=== PATIENT | male | born 1955 | race African-American/Black ===

== ENCOUNTER 2021-10-03 11:25 | Emergency (ER) | payer OTHER ==
[~2021-10-03] VITALS: Ht 177.8 cm; Wt 76.0 kg
[2021-10-03 11:52] VITALS: BP 146/87
[2021-10-03] MEDS ORDERED: LIDO:MAALOX 1:1 20 ML SINGLE DOSE. PO ONE (12:00)
--- NOTE | 2021-10-03 12:27 | PHYS DOC ---
Past History Additional Past Medical Histor: bph, chronic back pain (RALF WATSON APRN) Past Surgical History: Other Additional Past Surgical Histo: hernia repair at 18yr old (RALF WATSON APRN) General Adult EDM: Chief Complaint: ABDOMINAL PAIN HPI: HPI: Patient is a 65-year-old male presents with burning epigastric pain and lower abdominal pain. Patient states he was just placed on new medications from his PCP for GERD treatment. Patient also reports nausea and diarrhea. Denies anything making it better or worse. Denies fever or recent illness. History of chronic back pain, prostate issue. Denies alcohol or tobacco use. (RALF WATSON APRN) Review of Systems: Review of Systems: ROS At least 10 ROS systems have been reviewed and are negative except as documented in the HPI. General: Negative except as outlined in HPI above. Skin: Negative except as outlined in HPI above. HEENT: Negative except as outlined in HPI above. Neck: Negative except as outlined in HPI above. Respiratory: Negative except as outlined in HPI above.. Cardiovascular: Negative except as outlined in HPI above. Abdomen: Negative except as outlined in HPI above. : Negative except as outlined in HPI above. Back/MSK: Negative except as outlined in HPI above. Neuro: Negative except as outlined in HPI above. Psych: Negative except as outlined in HPI above. (RALF WATSON APRN) Current Medications: Current Meds: Current Medications Medications (Trade) Dose Ordered Sig/Esme Start Time Stop Time Status Last Admin Dose Admin Multi-Ingredient Mouthwash/Gargle (Gi Cocktail) 20 ml 1X ONCE 10/03/21 12:00 10/03/21 12:01 DC (RALF WATSON APRN) Allergies: Allergies: Allergies Coded Allergies Type Severity Reaction Last Updated Verified No Known Drug Allergies 10/03/21 No (RALF WATSON APRN) Physical Exam: PE: Constitutional: Well developed, well nourished, no acute distress, non-toxic appearance. [] HENT: Normocephalic, atraumatic, bilateral external ears normal, oropharynx moist, no oral exudates, nose normal. [] Eyes: PERRLA, EOMI, conjunctiva normal, no discharge. [] Neck: Normal range of motion, no tenderness, supple, no stridor. [] Cardiovascular:Heart rate regular rhythm, no murmur [] Lungs & Thorax: Bilateral breath sounds clear to auscultation [] Abdomen: Bowel sounds normal, soft, lower abdominal tenderness Skin: Warm, dry, no erythema, no rash. [] Back: No tenderness, no CVA tenderness. [] Extremities: No tenderness, no cyanosis, no clubbing, ROM intact, no edema. [] Neurologic: Alert and oriented X 3, normal motor function, normal sensory function, no focal deficits noted. [] Psychologic: Affect normal, judgement normal, mood normal. [] (RALF WATSON APRN) Current Patient Data: Vital Signs: Vital Signs Date Time Temp Pulse Resp B/P (MAP) Pulse Ox O2 Delivery O2 Flow Rate FiO2 10/03/21 11:52 97.7 50 16 146/87 (106) 99 (RALF WATSON APRN) EKG: EKG: Sinus rhythm. Heart rate 61 bpm. No STEMI. Read by Dr. Cano at 1207. [] (RALF WATSON APRN) Radiology/Procedures: Radiology/Procedures: [] XR CHEST 1V History: Reason: abd pain / Spl. Instructions: / History: Comparison: None. Findings: No consolidation or pleural effusion. Normal heart size. No pneumothorax. Impression: 1. No acute cardiopulmonary process. Electronically signed by: Tony Rivas DO (10/03/2021 12:40 PM) [facility] [place] INDICATION: Reason: abd pain / Spl. Instructions: / History: COMPARISON: December 2019 TECHNIQUE: Axial CT images were obtained through the abdomen and pelvis without intravenous contrast. One or more of the following individualized dose reduction techniques were utilized for this examination: 1. Automated exposure control; 2. Adjustment of the mA and/or kV according to patient size; 3. Use of iterative reconstruction technique. FINDINGS: Linear opacity at the lung bases could be from scarring or atelectasis. Vascular: Moderate calcific atherosclerosis. Hepatobiliary: No intrahepatic biliary duct dilation. Pancreas: Limited assessment secondary to lack of contrast. Spleen: Spleen unremarkable. Renal/Bladder: Low-density thickening of adrenal glands. For example on the left adrenal measures up to about 12 mm in thickness. Could be from causes such as hyperplasia or adenoma. Urinary bladder is partially distended. No left-sided hydronephrosis. No right-sided hydronephrosis. No definite radiopaque obstructive ureter stone. There are some adjacent calcifications likely within the vessels. Gastrointestinal: Colonic diverticulosis. Intussusception within a loop of small bowel the left-sided the abdomen. Appendix is partially seen and appears similar to prior. Portion obscured by adjacent unopacified bowel loops. Degenerative changes of the spine. Multilevel central canal and neural foraminal stenosis. Minimal wedging of the T12, T11 and T10 vertebral bodies. IMPRESSION: * No hydronephrosis. * Small bowel intussusception at the left side of the abdomen with some mild prominence of the small bowel wall in this area which could be from some inflammation to the area. No evidence of obstruction. This is commonly a transient finding and adults but would correlate with symptoms in the region. Electronically signed by: Tamir Mtz MD (10/03/2021 1:30 PM) [id number] (RALF WATSON APRN) Heart Score: C/O Chest Pain: No Risk Factors: Risk Factors: DM, Current or recent (<one month) smoker, HTN, HLP, family h istory of CAD, obesity. Risk Scores: Score 0 - 3: 2.5% MACE over next 6 weeks - Discharge Home Score 4 - 6: 20.3% MACE over next 6 weeks - Admit for Clinical Observation Score 7 - 10: 72.7% MACE over next 6 weeks - Early Invasive Strategies (RALF WATSON APRN) Course & Med Decision Making: Course & Med Decision Making Pertinent Labs and Imaging studies reviewed. (See chart for details) [] 65-year-old male presents with burning epigastric pain and lower abdominal pain. GI cocktail ordered to treat pain. Patient reports pain has improved after medication. All labs unremarkable. Lipase, 71. CT of the abdomen shows small bowel intussusception.Discussed results with patient. Advised patient he would most likely need to be transferred to [facility] for surgical consult. Patient is reporting pain. Patient given pain medication while in the ER. Patient requesting food. Advised patient he needed to stay n.p.o. Spoke with Dr. Art who wants patient transferred to [facility] for surgical consult. Consult with Dr. Steve as well who will be accepting patient at [facility]. Patient is hemodynamically stable upon transfer. (RALF WATSON APRN) Course & Med Decision Making I was the Attending physician on the above date of service of this patient. This patient was evaluated, examined, treated, and dispositioned from the emergency department by the mid-level practitioner. Although I was working at the time , no assistance was requested. Electronically signed, Mariana Cano DO (MARIANA CANO DO) Brooks Disclaimer: Brooks Disclaimer: This electronic medical record was generated, in whole or in part, using a voice recognition dictation system. (RALF WATSON APRN) Departure Departure: Impression: Primary Impression: Abdominal pain Qualified Codes: R10.84 - Generalized abdominal pain Additional Impression: Nausea Disposition: HOME / SELF CARE / HOMELESS Condition: STABLE Referrals: JENAE MICHEL (PCP) Patient Instructions: Abdominal Pain Additional Instructions: You were seen in the emergency room for abdominal pain. RALF WATSON APRN Oct 03, 2021 12:27 MARIANA CANO DO Oct 07, 2021 00:30
--- NOTE | 2021-10-03 12:43 | RAD ---
XR CHEST 1V History: Reason: abd pain / Spl. Instructions: / History: Comparison: None. Findings: No consolidation or pleural effusion. Normal heart size. No pneumothorax. Impression: 1. No acute cardiopulmonary process. Electronically signed by: Tony Rivas DO (10/03/2021 12:40 PM) [facility]
[2021-10-03 12:55] LABS: BASO # 0.1 x10^3/uL (0.0-0.2); BASO % 3 % (0-3); EOS # 0.1 x10^3/uL (0.0-0.7); EOS % 2 % (0-3); HEMATOCRIT 47.7 % (39.0-53.0); HEMOGLOBIN 15.4 g/dL (13.0-17.5); LYMPH # 1.2 x10^3/uL (1.0-4.8); LYMPH % 26 % (24-48); MEAN CORPUSCULAR HEMOGLOBIN 27 pg (25-35); MEAN CORPUSCULAR HGB CONC 32 g/dL (31-37); MEAN CORPUSCULAR VOLUME 84 fL (79-100); MONO # 0.6 x10^3/uL (0.0-1.1); MONO % 13 % (0-9); NEUT # 2.5 x10^3uL (1.8-7.7); NEUT % 56 % (31-73); PLATELET COUNT 283 x10^3/uL (140-400); RED BLOOD COUNT 5.71 x10^6/uL (4.30-5.70); RED CELL DISTRIBUTION WIDTH 16.7 % (11.5-14.5); WHITE BLOOD COUNT 4.4 x10^3/uL (4.0-11.0)
--- NOTE | 2021-10-03 12:57 | EKG ---
[address] [address] Test Date: 2021-10-03 Test Time: 11:58:03 Pat Name: ROBERT MALDONADO Department: Room: Gender: M Pediatric Medical Assistant: DIO : 1955 Requested By: RALF WATSON Order Number: [id number] Reading MD: Aguilar Calix Measurements Intervals [place] Rate: 61 P: 90 DE: 140 QRS: 96 QRSD: 84 T: 66 QT: 416 QTc: 424 Interpretive Statements SINUS RHYTHM ATRIAL PREMATURE COMPLEX(ES), TRIGEMINY RIGHTWARD AXIS ABNORMAL ECG RI6.02 No previous ECG available for comparison Electronically Signed On 10-05-2021 9:30:41 BAILER [employer]PERATORS SUPERVISOR by Aguilar Calix
[2021-10-03 13:05] LABS: CALCIUM 9.9 mg/dL (8.5-10.1); POTASSIUM 5.1 mmol/L (3.5-5.1)
[2021-10-03 13:11] LABS: ALBUMIN/GLOBULIN RATIO 1.1 (1.0-1.7); TOTAL BILIRUBIN 1.1 mg/dL (0.2-1.0); TOTAL PROTEIN 7.6 g/dL (6.4-8.2)
--- NOTE | 2021-10-03 13:33 | RAD ---
INDICATION: Reason: abd pain / Spl. Instructions: / History: COMPARISON: December 2019 TECHNIQUE: Axial CT images were obtained through the abdomen and pelvis without intravenous contrast. One or more of the following individualized dose reduction techniques were utilized for this examinat ion: 1. Automated exposure control; 2. Adjustment of the mA and/or kV according to patient size; 3 . Use of iterative reconstruction technique. FINDINGS: Linear opacity at the lung bases could be from scarring or atelectasis. Vascular: Moderate calcific atherosclerosis. Hepatobiliary: No intrahepatic biliary duct dilation. Pancreas: Limited assessment secondary to lack of contrast. Spleen: Spleen unremarkable. Renal/Bladder: Low-density thickening of adrenal glands. For example on the left adrenal measures up to about 12 mm in thickness. Could be from causes such as hyperplasia or adenoma. Urinary bladder is partially distended. No left-sided hydronephrosis. No right-sided hydronephrosis. No definite radiopa que obstructive ureter stone. There are some adjacent calcifications likely within the vessels. Gastrointestinal: Colonic diverticulosis. Intussusception within a loop of small bowel the left-sided the abdomen. Appendix is partially seen and appears similar to prior. Portion obscured by adjacent u nopacified bowel loops. Degenerative changes of the spine. Multilevel central canal and neural foraminal stenosis. Minimal wedging of the T12, T11 and T10 vertebral bodies. IMPRESSION: * No hydronephrosis. * Small bowel intussusception at the left side of the abdomen with some mild prominence of the small bowel wall in this area which could be from some inflammation to the area. No evidence of obstructio n. This is commonly a transient finding and adults but would correlate with symptoms in the region. Electronically signed by: Tamir Mtz MD (10/03/2021 1:30 PM) [id number]
[2021-10-03] MEDS ORDERED: IV NORMAL SALINE 1,000ML 1,000 ML IV ONE (14:00)
== END 2021-10-03 19:37 | disposition home or self-care (01) ==
LOC: ER 11:25
DX: R10.84 Generalized abdominal pain (principal); R11.0 Nausea; R19.7 Diarrhea, unspecified; G89.29 Other chronic pain; K21.9 Gastro-esophageal reflux disease without esophagitis; Z20.822 Contact with and (suspected) exposure to COVID-19
CPT/HCPCS: 36415; 71045; 74176; 80053; 83605; 83690; 85025; 87426; 93005; 96361; 96374; 99285; C9803; J3010; J7030; U0003

== ENCOUNTER 2022-01-07 18:11 | Emergency (ER) | payer OTHER ==
[~2022-01-07] VITALS: Ht 177.8 cm; Wt 76.0 kg
[2022-01-07] MEDS ORDERED: ASPIRIN CHEWABLE 81 MG TABLET. PO ONE (18:30)
[2022-01-07 19:02] LABS: BASO # 0.1 x10^3/uL (0.0-0.2); BASO % 1 % (0-3); EOS % 1 % (0-3); HEMATOCRIT 42.8 % (39.0-53.0); LYMPH # 1.3 x10^3/uL (1.0-4.8); LYMPH % 21 % (24-48); MEAN CORPUSCULAR HEMOGLOBIN 27 pg (25-35); MEAN CORPUSCULAR HGB CONC 33 g/dL (31-37); MEAN CORPUSCULAR VOLUME 81 fL (79-100); MONO # 0.5 x10^3/uL (0.0-1.1); MONO % 7 % (0-9); NEUT # 4.4 x10^3uL (1.8-7.7); NEUT % 70 % (31-73); PLATELET COUNT 271 x10^3/uL (140-400); RED BLOOD COUNT 5.27 x10^6/uL (4.30-5.70); RED CELL DISTRIBUTION WIDTH 15.2 % (11.5-14.5); WHITE BLOOD COUNT 6.2 x10^3/uL (4.0-11.0)
[2022-01-07 19:07] LABS: CALCIUM 8.9 mg/dL (8.5-10.1); CREATININE 0.9 mg/dL (0.7-1.3); GFR 102.5; POTASSIUM 4.1 mmol/L (3.5-5.1)
--- NOTE | 2022-01-07 19:14 | RAD ---
Exam: Chest one view INDICATION: Chest pain TECHNIQUE: Frontal view of the chest Comparisons: 10/03/2021 FINDINGS: The cardiomediastinal silhouette and pulmonary vessels are within normal limits. The lung and pleural spaces are clear. IMPRESSION: No acute cardiopulmonary process. Electronically signed by: Julinae Sutton MD (01/07/2022 7:12 PM) [facility]
[2022-01-07 19:20] LABS: ALBUMIN/GLOBULIN RATIO 1.2 (1.0-1.7); TOTAL BILIRUBIN 0.7 mg/dL (0.2-1.0); TOTAL PROTEIN 7.4 g/dL (6.4-8.2)
[2022-01-07 20:09] LABS: BACTERIA,URINE 0 /HPF (0-FEW); BILIRUBIN,URINE NEG (NEG); CLARITY,URINE CLEAR; COLOR,URINE YELLOW; GLUCOSE,URINE NEG (NEG); NITRITE,URINE NEG (NEG); RBC,URINE 0 /HPF (0-2); UROBILINOGEN,URINE 0.2 mg/dL (0.2 mg/dL); WBC,URINE 0 /HPF (0-4)
[2022-01-07] MEDS ORDERED: IV NORMAL SALINE 1,000ML 1,000 ML IV ONE (20:30)
--- NOTE | 2022-01-07 20:42 | PHYS DOC ---
Past History Additional Past Medical Histor: bph, chronic back pain (RALF WATSON APRN) Past Surgical History: Other Additional Past Surgical Histo: hernia repair at 18yr old (RALF WATSON APRN) Alcohol Use: None (RALF WATSON APRN) General Adult EDM: Chief Complaint: CHEST PAIN HPI: HPI: Patient is a 66-year-old male who presents with chest pain. Patient states that he was loading the logs into the back of a truck when the pain started. Patient reported pain as a tightening, pressure to his chest. Denies radiation of pain. Patient did have some shortness of breath and dizziness, and nausea along with the chest pressure. Patient states that symptoms have all resolved other than feelings of weakness. Denies taking anything for discomfort. Denies tobacco or alcohol use. Reports marijuana use.Patient has history of hypertension and asthma. (RALF WATSON APRN) Review of Systems: Review of Systems: ROS At least 10 ROS systems have been reviewed and are negative except as documented in the HPI. General: Negative except as outlined in HPI above. Skin: Negative except as outlined in HPI above. HEENT: Negative except as outlined in HPI above. Neck: Negative except as outlined in HPI above. Respiratory: Negative except as outlined in HPI above.. Cardiovascular: Negative except as outlined in HPI above. Abdomen: Negative except as outlined in HPI above. : Negative except as outlined in HPI above. Back/MSK: Negative except as outlined in HPI above. Neuro: Negative except as outlined in HPI above. Psych: Negative except as outlined in HPI above. (RALF WATSON APRN) Current Medications: Current Meds: Current Medications Medications (Trade) Dose Ordered Sig/Esme Start Time Stop Time Status Last Admin Dose Admin Aspirin (Aspirin Chewable) 324 mg 1X ONCE 01/07/22 18:30 01/07/22 18:45 DC 01/07/22 18:30 324 MG Sodium Chloride 1,000 ml @ 1,000 mls/hr 1X ONCE 01/07/22 20:30 01/07/22 21:29 UNV 01/07/22 20:30 1,000 MLS/HR (RALF WATSON APRN) Allergies: Allergies: Allergies Coded Allergies Type Severity Reaction Last Updated Verified No Known Drug Allergies 10/03/21 No (RALF WATSON APRN) Physical Exam: PE: Constitutional: Well developed, well nourished, no acute distress, non-toxic appearance. [] HENT: Normocephalic, atraumatic, bilateral external ears normal, oropharynx m oist, no oral exudates, nose normal. [] Eyes: PERRLA, EOMI, conjunctiva normal, no discharge. [] Neck: Normal range of motion, no tenderness, supple, no stridor. [] Cardiovascular:Heart rate regular rhythm, no murmur [] Lungs & Thorax: Bilateral breath sounds clear to auscultation [] Abdomen: Bowel sounds normal, soft, no tenderness, no masses, no pulsatile masses. [] Skin: Warm, dry, no erythema, no rash. [] Back: No tenderness, no CVA tenderness. [] Extremities: No tenderness, no cyanosis, no clubbing, ROM intact, no edema. [] Neurologic: Alert and oriented X 3, normal motor function, normal sensory function, no focal deficits noted. [] Psychologic: Affect normal, judgement normal, mood normal. [] (RALF WATSON APRN) Current Patient Data: Labs: Laboratory Tests Test 01/07/22 18:38 01/07/22 19:20 White Blood Count 6.2 x10^3/uL (4.0-11.0) Red Blood Count 5.27 x10^6/uL (4.30-5.70) Hemoglobin 14.0 g/dL (13.0-17.5) Hematocrit 42.8 % (39.0-53.0) Mean Corpuscular Volume 81 fL (79-100) Mean Corpuscular Hemoglobin 27 pg (25-35) Mean Corpuscular Hemoglobin Concent 33 g/dL (31-37) Red Cell Distribution Width 15.2 % (11.5-14.5) H Platelet Count 271 x10^3/uL (140-400) Neutrophils (%) (Auto) 70 % (31-73) Lymphocytes (%) (Auto) 21 % (24-48) L Monocytes (%) (Auto) 7 % (0-9) Eosinophils (%) (Auto) 1 % (0-3) Basophils (%) (Auto) 1 % (0-3) Neutrophils # (Auto) 4.4 x10^3uL (1.8-7.7) Lymphocytes # (Auto) 1.3 x10^3/uL (1.0-4.8) Monocytes # (Auto) 0.5 x10^3/uL (0.0-1.1) Eosinophils # (Auto) 0.0 x10^3/uL (0.0-0.7) Basophils # (Auto) 0.1 x10^3/uL (0.0-0.2) Sodium Level 136 mmol/L (136-145) Potassium Level 4.1 mmol/L (3.5-5.1) Chloride Level 100 mmol/L (98-107) Carbon Dioxide Level 28 mmol/L (21-32) Anion Gap 8 (6-14) Blood Urea Nitrogen 27 mg/dL (8-26) H Creatinine 0.9 mg/dL (0.7-1.3) Estimated GFR (Cockcroft-Gault) 102.5 BUN/Creatinine Ratio 30 (6-20) H Glucose Level 80 mg/dL (70-99) Calcium Level 8.9 mg/dL (8.5-10.1) Magnesium Level 2.0 mg/dL (1.8-2.4) Total Bilirubin 0.7 mg/dL (0.2-1.0) Aspartate Amino Transferase (AST) 28 U/L (15-37) Alanine Aminotransferase (ALT) 26 U/L (16-63) Alkaline Phosphatase 83 U/L (46-116) CZ-Bkm-K-Type Natriuretic Peptide 146 pg/mL (0-124) H Total Protein 7.4 g/dL (6.4-8.2) Albumin 4.0 g/dL (3.4-5.0) Albumin/Globulin Ratio 1.2 (1.0-1.7) Urine Collection Type Unknown Urine Color Yellow Urine Clarity Clear Urine pH 7.0 Urine Specific Moodus 1.025 Urine Protein Neg (NEG-TRACE) Urine Glucose (UA) Neg mg/dL (NEG) Urine Ketones (Stick) Neg mg/dL (NEG) Urine Blood Neg (NEG) Urine Nitrite Neg (NEG) Urine Bilirubin Neg (NEG) Urine Urobilinogen Dipstick 0.2 mg/dL (0.2 mg/dL) Urine Leukocyte Esterase Neg (NEG) Urine RBC 0 /HPF (0-2) Urine WBC 0 /HPF (0-4) Urine Bacteria 0 /HPF (0-FEW) Vital Signs: Vital Signs Date Time Temp Pulse Resp B/P (MAP) Pulse Ox O2 Delivery O2 Flow Rate FiO2 01/07/22 19:45 86 16 121/78 (92) 94 Room Air 01/07/22 18:20 98.3 (RALF WATSON APRN) EKG: EKG: Initial EKG: Sinus rhythm. Heart rate [address] elevation or depression. Read by Dr. Workman at 1826. Second EKG: Sinus rhythm. Heart rate [address] elevation or depression. Read by Dr. Pereyra at 1943 [] (RALF WATSON APRN) Radiology/Procedures: Radiology/Procedures: []Exam: Chest one view INDICATION: Chest pain TECHNIQUE: Frontal view of the chest Comparisons: 10/03/2021 FINDINGS: The cardiomediastinal silhouette and pulmonary vessels are within normal limits. The lung and pleural spaces are clear. IMPRESSION: No acute cardiopulmonary process. Electronically signed by: Juliane Sutton MD (01/07/2022 7:12 PM) [facility] (RALF WATSON APRN) Heart Score: C/O Chest Pain: Yes HEART Score for Chest Pain: HEART Score for Chest Pain Response (Comments) Value History Moderately Suspicious 1 ECG Normal 0 Age >45 - < 65 1 Risk Factors 1 or 2 Risk Factors 1 Troponin >1-<3x Normal Limit 1 Total 4 Risk Factors: Risk Factors: DM, Current or recent (<one month) smoker, HTN, HLP, family history of CAD, obesity. Risk Scores: Score 0 - 3: 2.5% MACE over next 6 weeks - Discharge Home Score 4 - 6: 20.3% MACE over next 6 weeks - Admit for Clinical Observation Score 7 - 10: 72.7% MACE over next 6 weeks - Early Invasive Strategies (RALF WATSON APRN) Course & Med Decision Making: Course & Med Decision Making Pertinent Labs and Imaging studies reviewed. (See chart for details) [] 66-year-old male presents with chest pain that started at 6 PM while he was loading logs into a truck. Also reported dizziness, nausea, shortness of breath. Patient symptoms had completely resolved upon arrival to the ER. Work-up in ER consisted of labs, troponin, chest x-ray, EKG, UA. Patient given 325 chewable aspirin. NS bolus started. EKG shows sinus rhythm, [address] elevation or depression. Initial troponin was elevated, 115. Heparin bolus given. Started heparin drip. Consulted cardiology for further recommendation. Patient will need to be trans ferred to [facility] for NSTEMI. Spoke with bread molder Dr. Nunez who is accepting patient and will do a heart cath in the morning. Patient made n.p.o. Contacted hospitalist, Dr. Steve, at [facility] for admission for NSTEMI. Heart score of 4. BNP elevated at 146. All other labs are unremarkable. Discussed all results with patient. Advised patient he would need to be transferred to [facility]. Patient is okay with admission plan and appreciative. Transfer of patient care to Dr. Pereyra at 2224. (RALF WATSON APRN) Dragon Disclaimer: Brooks Disclaimer: This electronic medical record was generated, in whole or in part, using a voice recognition dictation system. (RALF WATSON APRN) Departure Departure: Impression: Primary Impression: NSTEMI (non-ST elevated myocardial infarction) Disposition: 02 SHORT TERM HOSPITAL Condition: STABLE Referrals: JENAE MICHEL (PCP) Attending Signature Attending Signature I have reviewed the PA/GEOLOGIST's note and plan of care. I was available for consu ltation as needed during the patient's visit in the emergency department. I agree with the clinical impression, plan, and disposition. (MADELINE PEREYRA DO) RALF WATSON APRN Jan 07, 2022 20:42 MADELINE PEREYRA DO Jan 08, 2022 04:07
--- NOTE | 2022-01-07 20:55 | EKG ---
[address] [address] Test Date: 2022-01-07 Test Time: 18:25:08 Pat Name: ROBERT MALDONADO Department: Room: Gender: M Microbiological Lab Technician: ALBERT : 1955 Requested By: RALF WATSON Order Number: [id number] Reading MD: Ld Alex MD Measurements Intervals [place] Rate: 88 P: 66 CO: 146 QRS: 93 QRSD: 86 T: 62 QT: 346 QTc: 422 Interpretive Statements SINUS RHYTHM Electronically Signed On 01-11-2022 8:32:23 MULCHER OPERATOR by Ld Alex MD
[2022-01-07] MEDS ORDERED: HEPARIN 25,000UTS/250ML PREMIX 250 ML IV PRN (21:45)
[2022-01-07] MEDS ORDERED: HEPARIN for IV BOLUS 10,000 UNIT/10 ML VIAL. IV ONE (22:00)
[2022-01-07 23:31] VITALS: BP 128/80
--- NOTE | 2022-01-08 03:43 | EKG ---
[address] [address] Test Date: 2022-01-07 Test Time: 19:38:09 Pat Name: ROBERT MALDONADO Department: Room: Gender: M Tire Builder Heavy Service: ROGELIO : 1955 Requested By: RALF WATSON Order Number: [id number] Reading MD: Ld Alex MD Measurements Intervals [place] Rate: 99 P: 0 [place]: 162 QRS: 11 QRSD: 96 T: 27 QT: 342 QTc: 444 Interpretive Statements SINUS RHYTHM SVT NON-SPECIFIC ST/T CHANGES Electronically Signed On 01-11-2022 8:31:55 MARKET ANALYSIS DIRECTOR by Ld Alex MD
== END 2022-01-08 00:14 | disposition short-term general hospital (02) ==
LOC: ER 18:11
DX: I21.4 Non-ST elevation (NSTEMI) myocardial infarction (principal); Z20.822 Contact with and (suspected) exposure to COVID-19; G89.29 Other chronic pain
CPT/HCPCS: 36415; 71045; 80053; 81001; 83735; 83880; 84484; 85025; 87426; 93005; 96361; 96365; 96376; 99285; C9803; J1644; J7030; U0003

== ENCOUNTER 2022-02-22 16:02 | Emergency (ER) | payer OTHER ==
[~2022-02-22] VITALS: Ht 177.8 cm; Wt 76.0 kg
--- NOTE | 2022-02-22 16:24 | PHYS DOC ---
Past History Additional Past Medical Histor: bph, chronic back pain, heart attack (possibly) Past Surgical History: Other Additional Past Surgical Histo: hernia repair at 18yr old, heart cath Alcohol Use: None General Adult EDM: Chief Complaint: CHEST PAIN HPI: HPI: Patient is a 66-year-old male who arrives ambulatory to the emergency department complaining of chest pain. Patient reports his chest pain began at rest roughly 2 to 3 hours prior to arrival. Patient states he has the sensation that an elephant is sitting on his chest. Patient reports yesterday he had abdominal pain in the mid epigastric region and had to return home early from a movie because of his discomfort. Patient reports his abdominal pain has subsided however his chest pain is problematic and he is uncertain as to whether the 2 are related. The patient states he has a history of having had a myocardial infarction previously however he is without stents as he had a catheterization which revealed narrow coronary arteries without considerable plaque. Patient states he was slightly nauseated when this occurred as well. He denies being short of breath. He further denies any history of illness. He is awake, alert and nontoxic-appearing. Review of Systems: Review of Systems: Constitutional: Denies fever or chills Eyes: Denies change in visual acuity HENT: Denies nasal congestion or sore throat Respiratory: Denies cough or shortness of breath Cardiovascular: Reports chest pain. GI: Denies abdominal pain, nausea, vomiting, bloody stools or diarrhea : Denies dysuria Musculoskeletal: Denies back pain or joint pain Integument: Denies rash Neurologic: Denies headache, focal weakness or sensory changes Endocrine: Denies polyuria or polydipsia Lymphatic: Denies swollen glands Psychiatric: Denies depression or anxiety Allergies: Allergies: Allergies Coded Allergies Type Severity Reaction Last Updated Verified No Known Drug Allergies 10/03/21 No Physical Exam: PE: Constitutional: Well developed, well nourished, no acute distress, non-toxic natalie earance. [] HENT: Normocephalic, atraumatic, bilateral external ears normal, oropharynx moist, no oral exudates, nose normal. [] Eyes: PERRLA, EOMI, conjunctiva normal, no discharge. [] Neck: Normal range of motion, no tenderness, supple, no stridor. [] Cardiovascular:Heart rate regular rhythm, no murmur [] Lungs & Thorax: Bilateral breath sounds clear to auscultation [] Abdomen: Bowel sounds normal, soft, no tenderness, no masses, no pulsatile masses. [] Skin: Warm, dry, no erythema, no rash. [] Back: No tenderness, no CVA tenderness. [] Extremities: No tenderness, no cyanosis, no clubbing, ROM intact, no edema. [] Neurologic: Alert and oriented X 3, normal motor function, normal sensory function, no focal deficits noted. [] Psychologic: Affect normal, judgement normal, mood normal. [] Current Patient Data: Labs: Laboratory Tests Test 02/22/22 16:27 White Blood Count 3.2 x10^3/uL (4.0-11.0) L Red Blood Count 5.18 x10^6/uL (4.30-5.70) Hemoglobin 13.9 g/dL (13.0-17.5) Hematocrit 42.7 % (39.0-53.0) Mean Corpuscular Volume 82 fL (79-100) Mean Corpuscular Hemoglobin 27 pg (25-35) Mean Corpuscular Hemoglobin Concent 33 g/dL (31-37) Red Cell Distribution Width 15.5 % (11.5-14.5) H Platelet Count 261 x10^3/uL (140-400) Neutrophils (%) (Auto) 57 % (31-73) Lymphocytes (%) (Auto) 31 % (24-48) Monocytes (%) (Auto) 10 % (0-9) H Eosinophils (%) (Auto) 1 % (0-3) Basophils (%) (Auto) 1 % (0-3) Neutrophils # (Auto) 1.8 x10^3uL (1.8-7.7) Lymphocytes # (Auto) 1.0 x10^3/uL (1.0-4.8) Monocytes # (Auto) 0.3 x10^3/uL (0.0-1.1) Eosinophils # (Auto) 0.0 x10^3/uL (0.0-0.7) Basophils # (Auto) 0.0 x10^3/uL (0.0-0.2) Prothrombin Time 10.4 SEC (9.4-11.4) Prothrombin Time INR 1.0 (0.9-1.1) Sodium Level 138 mmol/L (136-145) Potassium Level 4.0 mmol/L (3.5-5.1) Chloride Level 104 mmol/L (98-107) Carbon Dioxide Level 23 mmol/L (21-32) Anion Gap 11 (6-14) Blood Urea Nitrogen 19 mg/dL (8-26) Creatinine 0.8 mg/dL (0.7-1.3) Estimated GFR (Cockcroft-Gault) 117.4 BUN/Creatinine Ratio 24 (6-20) H Glucose Level 96 mg/dL (70-99) Calcium Level 8.5 mg/dL (8.5-10.1) Total Bilirubin 2.1 mg/dL (0.2-1.0) H Aspartate Amino Transferase (AST) 17 U/L (15-37) Alanine Aminotransferase (ALT) 25 U/L (16-63) Alkaline Phosphatase 81 U/L (46-116) Troponin I High Sensitivity 83 ng/L (4-75) H DG-Xjq-[id number]-Type Natriuretic Peptide 95 pg/mL (0-124) Total Protein 6.6 g/dL (6.4-8.2) Albumin 3.7 g/dL (3.4-5.0) Albumin/Globulin Ratio 1.3 (1.0-1.7) Lipase 50 U/L (73-393) L Vital Signs: Vital Signs Date Time Temp Pulse Resp B/P (MAP) Pulse Ox O2 Delivery O2 Flow Rate FiO2 02/22/22 16:09 98.3 91 18 128/80 (96) 98 Room Air EKG: EKG: [] EKG was obtained at 1613 hrs. reveals a normal sinus rhythm with a ventricular rate of 83 bpm. There is right axis deviation present. Intervals are normal and there are no acute ST/T wave changes to denote ischemia otherwise. Radiology/Procedures: Radiology/Procedures: [][address] [address] IMAGING REPORT Signed PATIENT: ROBERT MALDONADO ACCOUNT: [id number] : 1955 LOCATION: ER AGE: 66 SEX: M EXAM STATUS: REG ER ORD. PHYSICIAN: WEBSTER,TAMMY J DO REASON: Chest pain PROCEDURE: PORTABLE CHEST 1V XR CHEST 1V 02/22/2022 4:24 PM INDICATION: Chest pain COMPARISON: Chest radiograph 01/07/2022 TECHNIQUE: Portable frontal view of the chest is provided. FINDINGS: The cardiomediastinal silhouette is within normal limits. Lungs are clear. Suspect a calcified granuloma projecting over the right clavicle measuring 11 mm. There are no significant pleural effusions. There is no pulmonary vascular congestion. No pneumothorax. No suspicious osseous abnormality. IMPRESSION: There is no acute cardiopulmonary process. Electronically signed by: Sushant Sanchez MD (02/22/2022 5:16 PM) [facility] DICTATED AND SIGNED BY: SUSHANT SANCHEZ MD DATE: 02/22/221714 CC: TAMMY WEBSTER DO; JENAE MICHEL ~ Heart Score: C/O Chest Pain: Yes HEART Score for Chest Pain: HEART Score for Chest Pain Response (Comments) Value History Moderately Suspicious 1 ECG Normal 0 Age > 65 2 Risk Factors 1 or 2 Risk Factors 1 Troponin >1-<3x Normal Limit 1 Total 5 Risk Factors: Risk Factors: DM, Current or recent (<one month) smoker, HTN, HLP, family history of CAD, obesity. Risk Scores: Score 0 - 3: 2.5% MACE over next 6 weeks - Discharge Home Score 4 - 6: 20.3% MACE over next 6 weeks - Admit for Clinical Observation Score 7 - 10: 72.7% MACE over next 6 weeks - Early Invasive Strategies Course & Med Decision Making: Course & Med Decision Making Pertinent Labs and Imaging studies reviewed. (See chart for details) The patient remains awake, alert and in no acute distress. Given the patient's laboratory findings in light of his chest pain, I do believe he warrants admission with further evaluation and possible cardiac consultation. As such I have elected to transfer the patient to [facility] where he has been admitted by Dr. Padilla Boucher. The patient understands this and has agreed to this plan. He will be transported upon bed availability. He is nontoxic-appearing and resting comfortably. He is awaiting transport. [] Dragon Disclaimer: Dragon Disclaimer: This electronic medical record was generated, in whole or in part, using a voice recognition dictation system. Departure Departure: Impression: Primary Impression: NSTEMI (non-ST elevated myocardial infarction) Disposition: 02 SHORT TERM HOSPITAL Admitting Physician: Other (Dr. Carlos Boucher at [facility]) Condition: STABLE Referrals: JENAE MICHEL (PCP) TAMMY WEBSTER DO Feb 22, 2022 16:24
[2022-02-22] MEDS ORDERED: ASPIRIN 325 MG TABLET PO ONE (16:30)
[2022-02-22 16:48] LABS: BASO % 1 % (0-3); EOS % 1 % (0-3); HEMATOCRIT 42.7 % (39.0-53.0); HEMOGLOBIN 13.9 g/dL (13.0-17.5); LYMPH % 31 % (24-48); MEAN CORPUSCULAR HEMOGLOBIN 27 pg (25-35); MEAN CORPUSCULAR HGB CONC 33 g/dL (31-37); MEAN CORPUSCULAR VOLUME 82 fL (79-100); MONO # 0.3 x10^3/uL (0.0-1.1); MONO % 10 % (0-9); NEUT # 1.8 x10^3uL (1.8-7.7); NEUT % 57 % (31-73); PLATELET COUNT 261 x10^3/uL (140-400); RED BLOOD COUNT 5.18 x10^6/uL (4.30-5.70); RED CELL DISTRIBUTION WIDTH 15.5 % (11.5-14.5); WHITE BLOOD COUNT 3.2 x10^3/uL (4.0-11.0)
[2022-02-22 17:00] LABS: CALCIUM 8.5 mg/dL (8.5-10.1); CREATININE 0.8 mg/dL (0.7-1.3); GFR 117.4
[2022-02-22 17:13] LABS: ALBUMIN 3.7 g/dL (3.4-5.0); ALBUMIN/GLOBULIN RATIO 1.3 (1.0-1.7); TOTAL BILIRUBIN 2.1 mg/dL (0.2-1.0); TOTAL PROTEIN 6.6 g/dL (6.4-8.2)
--- NOTE | 2022-02-22 17:18 | RAD ---
XR CHEST 1V 02/22/2022 4:24 PM INDICATION: Chest pain COMPARISON: Chest radiograph 01/07/2022 TECHNIQUE: Portable frontal view of the chest is provided. FINDINGS: The cardiomediastinal silhouette is within normal limits. Lungs are clear. Suspect a calcified granul tammi projecting over the right clavicle measuring 11 mm. There are no significant pleural effusions. There is no pulmonary vascular congestion. No pneumothora x. No suspicious osseous abnormality. IMPRESSION: There is no acute cardiopulmonary process. Electronically signed by: Nayely Wolf MD (02/22/2022 5:16 PM) [facility]
[2022-02-22] MEDS ORDERED: AMLO-186 PO (17:47)
[2022-02-22] MEDS ORDERED: LISI10TA16 PO (17:47)
[2022-02-22] MEDS ORDERED: CARV12.53 PO (17:47)
[2022-02-22 19:05] VITALS: BP 151/97
--- NOTE | 2022-02-22 19:09 | EKG ---
[address] [address] Test Date: 2022-02-22 Test Time: 16:13:23 Pat Name: ROBERT MALDONADO Department: Room: Gender: M Collections Director: : 1955 Requested By: TAMMY WEBSTER Order Number: [id number] Reading MD: Ronnie Nunez Measurements Intervals Taylor Rate: 83 P: 118 IL: 140 QRS: 92 QRSD: 84 T: 132 QT: 354 QTc: 416 Interpretive Statements SINUS RHYTHM LEFT ATRIAL ABNORMALITY RIGHTWARD AXIS QRS(T) CONTOUR ABNORMALITY CONSIDER HIGH LATERAL INFARCT ABNORMAL ECG Electronically Signed On 02-27-2022 21:50:04 CDT by Ronnie Nunez
== END 2022-02-22 20:14 | disposition left against medical advice (07) ==
LOC: ER 16:02
DX: I21.4 Non-ST elevation (NSTEMI) myocardial infarction (principal); G89.29 Other chronic pain
CPT/HCPCS: 36415; 71045; 80053; 83690; 83880; 84484; 85025; 85610; 93005; 99285

== ENCOUNTER 2022-03-14 10:40 | Emergency (ER) | payer OTHER, MEDICAID ==
[~2022-03-14] VITALS: Ht 177.8 cm; Wt 76.0 kg
[2022-03-14 10:40] VITALS: BP 142/68
[~2022-03-14 10:40] MED LIST: AMLO-186 PO; CARV12.53 PO; LISI10TA16 PO
--- NOTE | 2022-03-14 11:29 | RAD ---
images of the knee. No prior studies for comparison. History: Pain Findings: No fracture, dislocation, or osteochondral defect. No patellar tilt or subluxation. Bone mineralizati on is normal. Joint spaces are maintained. Trace effusion. Nonspecific calcifications within the popl iteal fossa. Impression: No acute osseous injury or dislocation. Trace joint effusion. Electronically signed by: Carlos Enrique Paz DO (03/14/2022 11:26 AM) [id number]
--- NOTE | 2022-03-14 11:32 | PHYS DOC ---
Past History Additional Past Medical Histor: bph, chronic back pain, heart attack (possibly) Past Surgical History: Other Additional Past Surgical Histo: hernia repair at 18yr old, heart cath Alcohol Use: None General Adult EDM: Chief Complaint: KNEE INJURY HPI: HPI: Patient is a 66-year-old male coming in for right knee pain and swelling. Patient has been going on for the past couple of days. Patient thinks he might have injured it when he was out walking by the river and jumping down off some rocks. Patient denies feeling any pop or tear at that time. Has been gradually getting worse. Been taking Percocet. Has had problems with his knee before and has had steroid injections. Denies any fevers no complaints. Says he feels a "clicking" when he walks. Complaining of pain worse on the medial aspect of his knee Review of Systems: Review of Systems: All other systems within normal limits except for as noted in the HPI Allergies: Allergies: Allergies Coded Allergies Type Severity Reaction Last Updated Verified No Known Drug Allergies 10/03/21 No Physical Exam: PE: Constitutional: Well developed, well nourished, no acute distress, non-toxic appearance. [] HENT: Normocephalic, atraumatic, bilateral external ears normal, nose normal. [] Eyes: PERRLA, conjunctiva normal, no discharge. [] Neck: No rigidity, supple, no stridor. [] Cardiovascular: Regular rate and rhythm, brisk cap refill [] Lungs & Thorax: Non labored symmetric respirations, no tachypnea or respiratory distress [] Abdomen: Soft, nondistended. Skin: Warm, dry, no erythema, no rash. [] Back: Unremarkable Extremities: No deformities, range of motion grossly intact, no lower extremity edema. Right knee: Swelling, tenderness over medial aspect of joint line. No crepitus. No posterior fossa tenderness or swelling. No erythema or warmth [] Neurologic: Alert and oriented X 3, no focal deficits noted. [] Psychologic: Affect normal, judgement normal, mood normal. [] Current Patient Data: Vital Signs: Vital Signs Date Time Temp Pulse Resp B/P (MAP) Pulse Ox O2 Delivery O2 Flow Rate FiO2 03/14/22 10:40 97.7 70 142/68 (92) 99 03/14/22 10:40 16 Room Air EKG: EKG: [] Radiology/Procedures: Radiology/Procedures: [place] [id number] IMAGING REPORT Signed PATIENT: ROBERT MALDONADO ACCOUNT: [id number] : 1955 LOCATION: ER AGE: 66 SEX: M EXAM STATUS: REG ER ORD. PHYSICIAN: ANGELES BARTON MD REASON: medial pain, effusion PROCEDURE: KNEE RIGHT 4V images of the knee. No prior studies for comparison. History: Pain Findings: No fracture, dislocation, or osteochondral defect. No patellar tilt or subluxation. Bone mineralization is normal. Joint spaces are maintained. Trace effusion. Nonspecific calcifications within the popliteal fossa. Impression: No acute osseous injury or dislocation. Trace joint effusion. Electronically signed by: Dewey Paz DO (03/14/2022 11:26 AM) [id number] DICTATED AND SIGNED BY: DEWEY PAZ DO DATE: 03/14/22 1124 CC: ANGELES BARTON MD; JENAE MICHEL ~ [] Heart Score: C/O Chest Pain: No Risk Factors: Risk Factors: DM, Current or recent (<one month) smoker, HTN, HLP, family history of CAD, obesity. Risk Scores: Score 0 - 3: 2.5% MACE over next 6 weeks - Discharge Home Score 4 - 6: 20.3% MACE over next 6 weeks - Admit for Clinical Observation Score 7 - 10: 72.7% MACE over next 6 weeks - Early Invasive Strategies Course & Med Decision Making: Course & Med Decision Making History and patient symptoms consistent with meniscus injury. Given instructions for hinged knee brace and follow-up with orthopedics. Brooks Disclaimer: Brooks Disclaimer: This electronic medical record was generated, in whole or in part, using a voice recognition dictation system. Departure Departure: Impression: Primary Impression: Right knee pain Disposition: HOME / SELF CARE / HOMELESS Condition: STABLE Referrals: JENAE MICHEL (PCP) Patient Instructions: Knee - Cartilage (Meniscus) Injury Scripts [hinged knee brace] No Conflict Check EA DAILY for knee pain, #1 Prov: ANGELES BARTON MD 03/14/22 ANGELES BARTON MD Mar 14, 2022 11:32
[2022-03-14] MEDS ORDERED: BRACE (11:40)
== END 2022-03-14 11:45 | disposition home or self-care (01) ==
LOC: ER 10:40
DX: M25.562 Pain in left knee (principal); R22.42 Localized swelling, mass and lump, left lower limb; G89.29 Other chronic pain
CPT/HCPCS: 73564; 99283